=== PATIENT | female | born 1965 | race Caucasian/White ===

== ENCOUNTER 2019-06-24 16:14 | Inpatient (IN) | payer OTHER, SELFPAY ==
[2019-06-24] VITALS (10 sets, daily range): BP systolic 127–140; BP diastolic 81–101; PULSE 106–130; RESP 13–24; TEMP 36.4–36.7; O2SAT 93–100; BMI 38.8
--- NOTE | ~2019-06-24 | XR_ITS ---
EXAMINATION: XR chest 2V EXAM DATE: 06/24/2019 17:11 INDICATION: Shortness of breath, dizziness, nausea, left arm heaviness, paresthesia. TECHNIQUE: Frontal and lateral projections of the chest obtained and reviewed. Comparison is made to prior examination from 05/29/2014. FINDINGS: There is cardiomegaly and pulmonary vascular congestion. Findings are more pronounced than on previous exam. Cardiac monitoring device. No confluent consolidation, pneumothorax or pleural eff usion suspected. There are no osseous abnormalities identified. IMPRESSION: Cardiomegaly, pulmonary vascular congestion. Reviewed, dictated and finalized at location A. LSIOR MACHINE FEEDER
--- NOTE | ~2019-06-24 | CT_ITS ---
EXAMINATION: CT brain wo con DATE: 06/24/2019 17:09 INDICATION: Frontal headache. Dizziness. Headaches and left arm. Nausea. TECHNIQUE: Computed tomography (CT) of the head was performed without intravenous contrast. The mA wa s adjusted according to patient size. Iterative reconstruction technique was employed. Exam dose: 68 1.00 mGy-cm total exam DLP. COMPARISON: 01/01/2019 CT brain FINDINGS: Prominent calcification of the dominant left vertebral artery and bilateral carotid siphon internal carotid artery calcifications. There is nonspecific diminished attenuation of the cerebral white matter, likely due to chronic small vessel ischemic changes. No intracranial mass lesion or hemorrhage or cerebrovascular accident is evident. No midline shift or mass effect. No subdural or epidural hematoma. There is prominent mucoperiosteal thickening of the right maxillary sinus. There is soft tissue thick ening in the posterolateral right sphenoid sinus. There is mild focal soft tissue thickening within t he right ethmoid air cells. The paranasal sinuses and mastoid air cells otherwise are normally develo ped and aerated. No skull fracture or bone destruction of the cranial vault is evident. There is a small approximately 3 mm calcific or bony density adjacent to the inner table of the left parietal occipital area which may represent a small enostosis or small calcified meningioma. IMPRESSION: Cerebral atherosclerosis and chronic small vessel ischemic changes of the cerebral white matter No acute intracranial finding Paranasal sinus findings 3 mm calcific or bony densities adjacent to the inner table in the left parietal-occipital area, like ly a small in ostosis or small calcified meningioma Reviewed, dictated and finalized at Location [facility]. Reviewed, dictated and finalized at location A. RANCE MANAGER INSURANCE IMPRESSION: Cerebral atherosclerosis and chronic small vessel ischemic changes of the cerebral white matter No acute intracranial finding Paranasal sinus findings 3 mm calcific or bony densities adjacent to the inner table in the left parieta l-occipital area, likely a small in ostosis or small calcified meningioma
--- NOTE | 2019-06-24 16:20 | ECG_ITS ---
Measurements Intervals [place] Rate: 126 P: IN: 0 QRS: 28 QRSD: 128 T: 153 QT: 349 QTc: 507 Interpretive Statements ATRIAL FLUTTER/TACHYCARDIA WITH RAPID VENTRICULAR RESPONSE INTRAVENTRICULAR CONDUCTION DELAY BORDERLINE R WAVE PROGRESSION, ANTERIOR LEADS INFERIOR INFARCT, AGE INDETERMINATE ST-T WAVE ABNORMALITY IN LATERAL LEADS- CONSIDER ISCHEMIA ABNORMAL ECG Electronically Signed On 06-25-2019 6:57:51 PROFILING MACHINE SET UP OPERATOR TOOL by Panfilo Pearce D.O.
--- NOTE | 2019-06-24 16:25 | ED.DIZZY ---
HPI - Dizziness General Chief Complaint: Dizziness Stated Complaint: Dizzy Time Seen by Provider: 06/24/19 16:20 Source: patient Mode of arrival: EMS Limitations: no limitations History of Present Illness HPI Narrative: Pt is a 54 y/o female who presents to the ED, via EMS, with c/o constant dizziness that started yesterday. She states that she feels like the room is spinning and her dizziness is aggravated when she closes her eyes. Pt states that she has had this happen to her 2 weeks ago and she was seen at [facility], [place]. She notes that she was anemic and she had to get 3 bags of blood transfused. Pt has a Hx of AFIB, CHF, and sleep apnea and she is on home O2 at night and CPAP. She states that her HR was not under control when she left [facility], [place] and she went from taking Amiodarone BID to taking it QAM. She was also taken off her blood thinner. Pt denies hematochezia, hemoptysis, melena, or epistaxis. She notes that she has been having AUGUSTIN's but she does not have one in the ED bed. She also notes that she has epistaxis a couple of weeks ago but it resolved on its own. Pt reports SOB when she woke up this morning, congestion, wheezing, and nausea, but she denies vomiting or cough. She has chronic orthopnea. Pt states that she is a 1PPD smoker but she only smoked 1/2 a pack today. Her design agent is Dr. Car and her urologist is Dr. Nath. elicited complaint: dizziness Pertinent past history: anemia Onset (ago): day(s) (yesterday) Description: room spinning Context: change in medication History of similar symptoms: Yes Exacerbating factors: keeping eyes closed Associated symptoms: nausea, shortness of breath and other (congestion, wheezing) Related Data Home Medications Medication Instructions Recorded Confirmed albuterol sulfate 2 puff INHALATION QID PRN 06/24/19 amiodarone 200 mg PO DAILY 06/24/19 aspirin 325 mg PO DAILY 06/24/19 carvedilol 6.25 mg PO BID 06/24/19 docusate sodium [Stool Softener] 100 mg PO DAILY 06/24/19 furosemide [Lasix] 40 mg PO DAILY 06/24/19 lisinopril 40 mg PO DAILY 06/24/19 montelukast 10 mg PO DAILY 06/24/19 potassium chloride [Klor-Con M10] 10 meq PO DAILY 06/24/19 ranolazine [Ranexa] 1,000 mg PO Q12H 06/24/19 06/24/19 Allergies Allergy/AdvReac Type Severity Reaction Status Date / Time acetaminophen [From Percocet] Allergy Unknown Unknown Verified 06/24/19 16:19 oxycodone [From Percocet] Allergy Unknown Unknown Verified 06/24/19 16:19 Review of Systems Review of Systems: All systems reviewed & are unremarkable except as noted in HPI and below ENT: Denies epistaxis Respiratory: Respiratory: Reports chest congestion, Denies cough, Denies hemoptysis, Reports dyspnea and Reports wheezing Gastrointestinal: Gastrointestinal: Denies melena, Denies hematochezia, Reports nausea and Denies vomiting Neurologic: Reports dizziness and Denies headache(s) [facility] Social History Social History (Updated 06/24/19 @ 17:00 by Jaida Carter) Smoking packs per day: 1 Smoking cigarettes per day: 20.0 Years smoked: 43 Smoking pack-years: 43.00 Smoking status: Current every day smoker Tobacco type: cigarettes Alcohol intake: never Substance use: current Substance use type: marijuana Gender identity (if verbalized by the patient): Female Spiritual care concerns: No Agree to blood products: Yes Exam Const: General: no acute distress and alert; No diaphoretic Orientation/consciousness: oriented x3 HENMT: Ears: TM's normal bilaterally Mouth: Yes moist mucous membranes Eyes: Conjunctivae: conjunctivae normal Pupils: PERRL EOM: EOM intact bilaterally and No nystagmus Chest: Chest palpation & inspection: normal inspection of the chest Resp: Effort & Inspection: normal respiratory effort Auscultation: clear to auscultation bilaterally and no wheezes Cardio: Rate: tachycardic Rhythm: abnormal rhythm irregularly irregular GI: Palpation (GI):
[2019-06-24] MEDS: MECLIZINE HCL 25 MG TABLET PO (16:42)
[2019-06-24] MEDS: ONDANSETRON INJ 4 MG/2 ML VIAL IV PUSH (16:43)
[2019-06-24 16:50] LABS: Basophils Percent Auto 0.5 % (0.2-1.2); Eosinophils Absolute Auto 0.1 K/mm3 (0-0.3); Eosinophils Percent Auto 1.5 % (0-4.4); Hematocrit 29.3 % (37.0-47.0); Hemoglobin 8.7 g/dL (12.0-15.0); Immature Granulocyte Absolute 0.03 K/mm3 (0.00-0.031); Immature Granulocyte Percent A 0.4 % (0-0.5); Lymphocytes Absolute Auto 1.51 K/mm3 (0.9-3.2); Lymphocytes Percent Auto 19.3 % (18.3-44.2); Mean Corpuscular HGB Conc 29.7 g/dl (32-36); Mean Corpuscular Hemoglobin 25.2 pg (26-34); Mean Corpuscular Volume 84.9 fl (80-100); Mean Platelet Volume 11.6 fl (7.4-10.4); Monocytes Absolute Auto 0.6 K/mm3 (0.1-0.6); Monocytes Percent Auto 7.7 % (2.6-8.5); Neutrophils Absolute Auto 5.5 K/mm3 (1.3-6.7); Neutrophils Percent Auto 70.6 % (45.5-73.1); Platelet Count Result 207 k/mm3 (150-375); Red Blood Count 3.45 M/mm3 (4.2-5.4); Red Cell Distribution Width 17.3 % (11.5-14.5); White Blood Count 7.8 K/mm3 (4.5-10.0)
[2019-06-24 16:56] LABS: Alveolar/Arterial O2 Gradient 29.4 mmHg; Base Excess ABG 2.9 mEq/l (+/-2.0); Carboxyhemoglobin 2.8 % THb (0-2.0); Fractional Inspired Oxygen 21 %; HCO3 ABG 27.2 mEq/l (22.0-26.0); Methemoglobin ABG 0.3 %THb (0-1.5); Oxygen Content ABG 12.5 %vol (16.0-22.0); Oxygen Saturation ABG 94.9 % (95.0-100.0); Oxyhemoglobin 90.3 % THb (90.0-100.0); PCO2 ABG 40.9 mmHg (35.0-45.0); PO2 ABG 71.4 mmHg (80.0-100.0); Reduced Hemoglobin 6.6 %THb (0-5.0); Total Hemoglobin 9.8 g/dL (12.0-18.0); pH ABG 7.441 (7.350-7.450)
[2019-06-24 16:58] LABS: Device ROOM AIR; Modified Allen's Test Pass; Site Drawn LEFT RADIAL
[2019-06-24 17:02] LABS: Alanine Aminotransferase 14 U/L (4-35); Albumin Level 3.7 g/dL (3.5-5.1); Alkaline Phosphatase 72 U/L (38-126); Aspartate Amino Transferase 15 U/L (14-36); Bilirubin,Total 0.4 mg/dL (0.2-1.3); Blood Urea Nitrogen 15 mg/dL (7-17); Calcium 8.5 mg/dL (8.4-10.2); Carbon Dioxide 30 mmol/L (22-30); Chloride 102 mmol/L (98-107); Estimated Glomerular Filt Rate > 60; Glucose 109 mg/dL (65-105); Lactic Acid Reflex 0.8 mmol/L (0.7-2.1); Sodium 140 mmol/L (137-145)
[2019-06-24 17:03] LABS: Prothrombin Time 13.3 Seconds (11.1-14.7)
[2019-06-24 17:04] LABS: Hypochromasia 2+ (NORMAL); Platelet Estimate Adequate (Adequate)
[2019-06-24 17:05] LABS: Anisocytosis 2+ (NORMAL)
[2019-06-24 17:14] LABS: NT Pro B Type Natriuretic Pept 3850 PG/ML (5-100); Troponin I < 0.012 ng/mL (0.000-0.034)
[2019-06-24] MEDS: POTASSIUM CHLORIDE 20 MEQ TABLET 40 MEQ PO (17:33)
[2019-06-24 17:45] LABS: Magnesium 1.7 mg/dL (1.6-2.3)
[2019-06-24] MEDS: FUROSEMIDE INJ 40 MG/4 ML VIAL IV PUSH (17:47)
[2019-06-24 18:27] LABS: Glucose Point of Care 127 (65-105)
[2019-06-24 18:38] LABS: Add Urine Microscopic? NO; Appearance Urine Clear (Clear); Bilirubin Urine Negative (Negative); Blood Urine Negative (Negative); Color Urine Yellow (Yellow); Glucose Urine UA Negative (Negative); Ketones Urine Negative (Negative); Leukocyte Esterase Ur Negative LEU/UL (Negative); Nitrate Urine Negative (Negative); Protein Urine Negative (Negative); Specific Grav Ur 1.011 (1.001-1.035); Urobilinogen Urine Negative mg/dL (<2.0)
--- NOTE | 2019-06-24 18:45 | ADMGEN ---
This patient, Dee Zamora, was admitted to IMU Room 231-01. Patient/family oriented to hospital policies and general routines including ID bracelet, bed and alarms, visiting hours, pain management, procedures, bathroom and other care routines, personal items, smoking policy, room service/diet, and visiting hours. Valuables list has been completed. Information on how to activate the Rapid Response Team has been discussed. Patient/Family are encouraged to report perceived risks to care and to ask questions if they do not understand what they are told or what they should do.
--- NOTE | 2019-06-24 19:19 | PM.IMHP ---
H&P: HPI History of Present Illness Chief complaint: chf dizziness Narrative: Dee Zamora is a 54 year old female who has a past medical history of COPD, CHF, and atrial fibrillation. The patient had been at [facility] approximately 2 weeks ago. The patient stated that her hemoglobin was less than 6 and she got 3 units of packed red blood cells at that hospital. The patient had been very short of breath and felt better when discharged from [facility] 2 weeks ago. The patient did sign a consent to get records from [facility]. The records are currently not here. She had been on Xarelto and Plavix and those 2 medications were discontinued due to her anemia. She had a recent colonoscopy prior to her hemoglobin of 6 and had no abnormal T is according to the patient. The patient does have nebulizer machine at home and has been using it without difficulty but still continues to complain of shortness of breath with exertion. The patient's potassium was found to be 3.0 and was supplemented with potassium. The patient was also given IV Lasix. Her chest x-ray was read as congestive changes. She is being admitted for exacerbation of congestive heart failure and COPD. She also has hypokalemia. Review of Systems Review of Systems: All systems reviewed & are unremarkable except as noted in HPI and below Constitutional: Constitutional: Reports as per HPI and Reports no additional constitutional complaints Eyes: Eyes: Reports as per HPI and Reports no additional eye complaints ENT: Reports system reviewed and no additional complaints, except as documented and Reports hearing normal Cardiovascular: Cardiovascular: Reports no additional cardiovascular complaints Respiratory: Respiratory: Reports as per HPI, Reports chest congestion, Reports dyspnea (With exertion) and Reports wheezing Gastrointestinal: Gastrointestinal: Reports as per HPI and Reports no additional gastrointestinal complaints Musculoskeletal: Musculoskeletal: Reports no additional musculoskeletal complaints Integumentary/Breasts: Skin/Breast: Reports system reviewed and no additional complaints, except as docu and Reports as per HPI Neurologic: Reports system reviewed and no additional complaints, except as documented, Reports as per HPI and Reports Normal hearing present Psychiatric: Psychiatric: Reports no additional psychiatric complaints and Reports as per HPI Endocrine: Endocrine: Reports no additional endocrine complaints Hematologic/Lymphatic: Hematologic/Lymphatic: Reports no additional hematologic/lymphatic complaints Allergic/Immunologic: Allergic/Immunologic: Reports no additional allergic/immunologic complaints PMFSH Past Medical History Medical History (Updated 06/24/19 @ 19:47 by Candy Perez NP) Afib (Chronic) Arthritis (Chronic) Asthma (Chronic) Bilateral cataracts (Chronic) CHF (congestive heart failure) (Chronic) COPD (chronic obstructive pulmonary disease) (Chronic) Emphysema of lung (Chronic) GERD (gastroesophageal reflux disease) (Acute) HTN (hypertension) (Chronic) Myocardial infarction (Chronic) STEPH on CPAP (Chronic) Sleep apnea (Chronic) Surgical History Surgical History (Updated 06/24/19 @ 19:32 by Candy Perez NP) H/O heart artery stent (Chronic) H/O: hysterectomy (Chronic) History of back surgery (Chronic) History of loop recorder (Chronic) Hx of cholecystectomy (Chronic) Hx of tonsillectomy (Chronic) Family History Family History Mother Lung cancer Sibling Lung cancer Social History Social History (Updated 06/24/19 @ 19:34 by Candy Perez NP) Social History: She does not have a power of compliance attorney. She does needs herself to be a full code. Smoking packs per day: 1 Smoking cigarettes per day: 20.0 Years smoked: 43 Smoking pack-years: 43.00 Smoking status: Current every day smoker Tobacco type: cigarettes Alcohol intake: never Substance
[2019-06-24 20:05] LABS: Glucose Point of Care 129 (65-105)
[2019-06-24] MEDS: ALBUTEROL SULFATE NEB 2.5 MG/0.5 ML INH INHALATION (20:51)
[2019-06-24] MEDS: RANOLAZINE 500 MG TAB.ER.12H 1000 MG PO (22:18)
[2019-06-24] MEDS: methylPREDNISolone SOD SUCC 125 MG VIAL 80 MG IV PUSH (23:56)
[2019-06-25] VITALS (29 sets, daily range): BP systolic 117–152; BP diastolic 72–105; PULSE 104–132; RESP 14–24; TEMP 36–36.7; O2SAT 93–98
[2019-06-25] MEDS: ALBUTEROL SULFATE NEB 2.5 MG/0.5 ML INH INHALATION ×4 (03:03→21:39)
[2019-06-25 05:25] LABS: Basophils Percent Auto 0.5 % (0.2-1.2); Eosinophils Percent Auto 0.3 % (0-4.4); Hemoglobin 9.1 g/dL (12.0-15.0); Immature Granulocyte Absolute 0.04 K/mm3 (0.00-0.031); Immature Granulocyte Percent A 0.6 % (0-0.5); Lymphocytes Absolute Auto 0.35 K/mm3 (0.9-3.2); Lymphocytes Percent Auto 5.3 % (18.3-44.2); Mean Corpuscular HGB Conc 29.4 g/dl (32-36); Mean Corpuscular Hemoglobin 25.3 pg (26-34); Mean Corpuscular Volume 86.4 fl (80-100); Mean Platelet Volume 11.8 fl (7.4-10.4); Monocytes Absolute Auto 0.1 K/mm3 (0.1-0.6); Monocytes Percent Auto 0.8 % (2.6-8.5); Neutrophils Absolute Auto 6.2 K/mm3 (1.3-6.7); Neutrophils Percent Auto 92.5 % (45.5-73.1); Platelet Count Result 219 k/mm3 (150-375); Red Blood Count 3.59 M/mm3 (4.2-5.4); Red Cell Distribution Width 17.2 % (11.5-14.5); White Blood Count 6.7 K/mm3 (4.5-10.0)
[2019-06-25] MEDS: methylPREDNISolone SOD SUCC 125 MG VIAL 80 MG IV PUSH (05:31)
[2019-06-25 05:37] LABS: Blood Urea Nitrogen 19 mg/dL (7-17); Calcium 8.7 mg/dL (8.4-10.2); Carbon Dioxide 30 mmol/L (22-30); Chloride 101 mmol/L (98-107); Estimated CRCL calculation 76 ml/min; Estimated Glomerular Filt Rate 57; Glucose 225 mg/dL (65-105); Potassium 3.8 mmol/L (3.4-5.0); Sodium 140 mmol/L (137-145)
[2019-06-25 06:52] LABS: Hypochromasia 2+ (NORMAL); Ovalocytes 2+ (NORMAL); Platelet Estimate Adequate (Adequate); Polychromasia 1+ (NORMAL); Stomatocytes 1+ (NORMAL); Tear Drop Cells 2+ (NORMAL)
--- NOTE | 2019-06-25 08:12 | PM.IMPN ---
Progress Note: A&P Assessment and Plan (1) CHF (congestive heart failure): Qualifiers: Heart failure type: unspecified Heart failure chronicity: acute on chronic Qualified Code(s): I50.9 - Heart failure, unspecified Code(s): I50.9 - Heart failure, unspecified Status: Chronic Assessment and Plan: Type unknown as patient is normally seen by Cardiology [place]. Records have been requested but not yet available. Patient already improving. Chest x-ray on admission with pulmonary vascular congestion. Current on room air. Electrolytes and kidney function stable. Continue IV Lasix. Continue home lisinopril. Restarting home Coreg. Possible transfer from IMU later today if heart rate is improved. (2) Atrial fibrillation, chronic: Code(s): I48.20 - Chronic atrial fibrillation, unspecified Status: Acute Assessment and Plan: Telemetry reviewed on 06/25/2019 with heart rate in 110s to 120s. Home amiodarone already continued. Normally on Coreg and will resume this morning. No longer on Xarelto due to recent problems with anemia and need for transfusion. Will continue to monitor. (3) HTN (hypertension): Qualifiers: Hypertension type: essential hypertension Qualified Code(s): I10 - Essential (primary) hypertension Code(s): I10 - Essential (primary) hypertension Status: Chronic Assessment and Plan: Blood pressure reviewed on 06/25/2019 and mildly elevated this morning. Home Coreg being restarted. Also on diuretic. Will continue to monitor and adjust treatment as needed. (4) Acute hypokalemia: Code(s): E87.6 - Hypokalemia Status: Chronic Assessment and Plan: Potassium 3.0 on admission with replacement given. Level up to 3.8 today. Will continue to monitor and replace as needed. (5) Hyperglycemia: Code(s): R73.9 - Hyperglycemia, unspecified Status: Acute Assessment and Plan: No known history of diabetes. Blood sugar is over 200 this morning but has been receiving IV steroids. Steroids being discontinued. Will continue to monitor glucose level today. Will check hemoglobin A1c. (6) COPD (chronic obstructive pulmonary disease): Qualifiers: COPD type: unspecified COPD Qualified Code(s): J44.9 - Chronic obstructive pulmonary disease, unspecified Code(s): J44.9 - Chronic obstructive pulmonary disease, unspecified Status: Chronic Assessment and Plan: Clinically does not have exacerbation of COPD at this time. On room air. Will discontinue IV steroids. (7) Chronic anemia: Code(s): D64.9 - Anemia, unspecified Status: Chronic Assessment and Plan: Recent transfusion within the past 2 weeks. Hemoglobin 9.1 today and stable. Will continue to monitor H&H. No signs of acute bleeding. (8) STEPH on CPAP: Code(s): G47.33 - Obstructive sleep apnea (adult) (pediatric); Z99.89 - Dependence on other enabling machines and devices Status: Chronic Assessment and Plan: Continue home CPAP. Currently on room air. (9) CAD (coronary artery disease): Qualifiers: Coronary Disease-Associated Artery/Lesion type: [place] artery [place] vs. transplanted heart: [place] heart Associated angina: without angina Qualified Code(s): I25.10 - Atherosclerotic heart disease of [place] coronary artery without angina pectoris Code(s): I25.10 - Atherosclerotic heart disease of [place] coronary artery without angina pectoris Status: Acute Assessment and Plan: No acute issue. Awaiting records from [facility]. Will continue home aspirin and Ranexa along with beta-lore. (10) DVT prophylaxis: Code(s): Z29.9 - Encounter for prophylactic measures, unspecified Status: Acute Assessment and Plan: SCDs. Time Spent With Patient Time with patient: 15 - 25 minutes Subjective Interval history: Date of Service: 06/25/2019. Admitted with CHF exacerb
[2019-06-25 08:15] LABS: Glucose Point of Care 213 (65-105)
[2019-06-25] MEDS: AMIODARONE HCL 200 MG TABLET PO (09:00)
[2019-06-25] MEDS: carvediloL 6.25 MG TABLET PO ×2 (09:01→20:34)
[2019-06-25] MEDS: RANOLAZINE 500 MG TAB.ER.12H 1000 MG PO ×2 (09:01→20:35)
[2019-06-25] MEDS: LISINOPRIL 20 MG TABLET 40 MG PO (09:02)
[2019-06-25] MEDS: ASPIRIN 325 MG TABLET PO (09:02)
[2019-06-25] MEDS: FUROSEMIDE INJ 40 MG/4 ML VIAL IV PUSH (09:03)
[2019-06-25] MEDS: DOCUSATE SODIUM 100 MG CAPSULE PO (09:04)
[2019-06-25] MEDS: MONTELUKAST SODIUM 10 MG TABLET PO (09:28)
[2019-06-25] MEDS: POTASSIUM CHLORIDE 10 MEQ TABLET.ER PO (09:28)
[2019-06-25 11:20] LABS: Hemoglobin A1C 5.7 % (<5.7)
[2019-06-25 12:04] LABS: Glucose Point of Care 141 (65-105)
[2019-06-25] MEDS: LIDOCAINE 5% PATCH 1 PATCH TRANSDERM (12:17)
[2019-06-25 17:02] LABS: Glucose Point of Care 270 (65-105)
[2019-06-25 20:07] LABS: Glucose Point of Care 187 (65-105)
[2019-06-25] MEDS: ACETAMINOPHEN 325 MG TABLET 650 MG PO (20:35)
[2019-06-26] VITALS (25 sets, daily range): BP systolic 108–153; BP diastolic 72–99; PULSE 94–129; RESP 12–20; TEMP 36.2–36.8; O2SAT 96–99
[2019-06-26] MEDS: ALBUTEROL SULFATE NEB 2.5 MG/0.5 ML INH INHALATION ×4 (02:12→21:09)
[2019-06-26 05:13] LABS: Blood Urea Nitrogen 27 mg/dL (7-17); Carbon Dioxide 30 mmol/L (22-30); Chloride 101 mmol/L (98-107); Estimated CRCL calculation 84 ml/min; Estimated Glomerular Filt Rate > 60; Glucose 173 mg/dL (65-105); Magnesium 1.7 mg/dL (1.6-2.3); Potassium 3.4 mmol/L (3.4-5.0); Sodium 139 mmol/L (137-145)
[2019-06-26] MEDS: ACETAMINOPHEN 325 MG TABLET 650 MG PO ×4 (05:52→20:31)
[2019-06-26 08:41] LABS: Glucose Point of Care 167 (65-105)
[2019-06-26] MEDS: LIDOCAINE 5% PATCH 1 PATCH TRANSDERM (09:03)
[2019-06-26] MEDS: carvediloL 6.25 MG TABLET PO ×2 (09:04→11:03)
[2019-06-26] MEDS: ASPIRIN 325 MG TABLET PO (09:05)
[2019-06-26] MEDS: AMIODARONE HCL 200 MG TABLET PO (09:05)
[2019-06-26] MEDS: DOCUSATE SODIUM 100 MG CAPSULE PO (09:05)
[2019-06-26] MEDS: RANOLAZINE 500 MG TAB.ER.12H 1000 MG PO ×2 (09:05→20:31)
[2019-06-26] MEDS: LISINOPRIL 20 MG TABLET 40 MG PO (09:05)
[2019-06-26] MEDS: MONTELUKAST SODIUM 10 MG TABLET PO (09:05)
[2019-06-26] MEDS: POTASSIUM CHLORIDE 20 MEQ TABLET PO (09:05)
[2019-06-26] MEDS: FUROSEMIDE INJ 40 MG/4 ML VIAL IV PUSH (09:06)
--- NOTE | 2019-06-26 10:23 | PM.IMPN ---
Progress Note: A&P Assessment and Plan (1) CHF (congestive heart failure): Qualifiers: Heart failure chronicity: acute on chronic Heart failure type: unspecified Qualified Code(s): I50.9 - Heart failure, unspecified Code(s): I50.9 - Heart failure, unspecified Status: Chronic Assessment and Plan: Type unknown as patient is normally seen by Cardiology [place]. Records requested but not revealing as to type of congestive heart failure with no echocardiogram occluded. Patient is improving with IV Lasix and will continue. Remains on room air. Electrolytes and kidney function remained stable. Will continue lisinopril and Coreg. Will transfer to medical floor with telemetry this afternoon as heart rate is now better controlled with increase and Coreg. (2) Atrial fibrillation, chronic: Code(s): I48.20 - Chronic atrial fibrillation, unspecified Status: Acute Assessment and Plan: Telemetry reviewed on 06/26/2019 this morning with heart rate still increasing to the 120s. Coreg dose increased. Telemetry reviewed this afternoon with heart rate now 90s to low 100s. Will continue home amiodarone. No longer on Xarelto due to recent problems with anemia and need for transfusion. Will transfer to medical floor with telemetry. Possible discharge tomorrow if stable. (3) HTN (hypertension): Qualifiers: Hypertension type: essential hypertension Qualified Code(s): I10 - Essential (primary) hypertension Code(s): I10 - Essential (primary) hypertension Status: Chronic Assessment and Plan: Blood pressure reviewed on 06/26/2019 and stable in acceptable range. Continue to monitor on higher dose of Coreg along with lisinopril and diuretic. Will adjust treatment as needed. (4) Acute hypokalemia: Code(s): E87.6 - Hypokalemia Status: Chronic Assessment and Plan: Potassium 3.4 today. Will give an additional dose of potassium. Keep scheduled oral replacement. Will continue to monitor and adjust replacement as needed. (5) Hyperglycemia: Code(s): R73.9 - Hyperglycemia, unspecified Status: Acute Assessment and Plan: No known history of diabetes. Blood sugar reviewed on 06/26/2019 with improvement but still slightly higher than would like. 5.7. No longer on steroids. Will monitor. (6) COPD (chronic obstructive pulmonary disease): Qualifiers: COPD type: unspecified COPD Qualified Code(s): J44.9 - Chronic obstructive pulmonary disease, unspecified Code(s): J44.9 - Chronic obstructive pulmonary disease, unspecified Status: Chronic Assessment and Plan: Clinically does not have exacerbation of COPD at this time. Remains on room air. Will monitor. (7) Chronic anemia: Code(s): D64.9 - Anemia, unspecified Status: Chronic Assessment and Plan: Recent transfusion within the past 2 weeks. Hemoglobin 9.1 on 06/25/19 and stable. Will continue to monitor H&H. No signs of acute bleeding. (8) STEPH on CPAP: Code(s): G47.33 - Obstructive sleep apnea (adult) (pediatric); Z99.89 - Dependence on other enabling machines and devices Status: Chronic Assessment and Plan: Continue home CPAP. Currently on room air. (9) CAD (coronary artery disease): Qualifiers: Associated angina: without angina Coronary Disease-Associated Artery/Lesion type: [place] artery [place] vs. transplanted heart: [place] heart Qualified Code(s): I25.10 - Atherosclerotic heart disease of [place] coronary artery without angina pectoris Code(s): I25.10 - Atherosclerotic heart disease of [place] coronary artery without angina pectoris Status: Acute Assessment and Plan: Stable. No acute issue. Will continue home aspirin and Ranexa along with beta-lore. Will monitor. (10) DVT prophylaxis: Code(s): Z29.9 - Encounter for prophylactic measures, unspecified Status: Acut
[2019-06-26] MEDS: IPRATROPIUM BR 0.02% INH SOLN 0.5 MG/2.5 ML VIAL INHALATION (10:46)
[2019-06-26 12:05] LABS: Glucose Point of Care 129 (65-105)
[2019-06-26] MEDS: POTASSIUM CHLORIDE 20 MEQ PACKET (FOR LIQUID) PO (17:51)
[2019-06-26 18:21] LABS: Glucose Point of Care 106 (65-105)
[2019-06-26] MEDS: carvediloL 12.5 MG TABLET PO (20:31)
[2019-06-26 20:50] LABS: Glucose Point of Care 161 (65-105)
[2019-06-27] VITALS (21 sets, daily range): BP systolic 126–150; BP diastolic 75–95; PULSE 83–129; RESP 13–20; TEMP 36.2–36.9; O2SAT 94–100
[2019-06-27] MEDS: ALBUTEROL SULFATE NEB 2.5 MG/0.5 ML INH INHALATION ×3 (03:34→15:00)
[2019-06-27 05:24] LABS: Blood Urea Nitrogen 27 mg/dL (7-17); Calcium 8.8 mg/dL (8.4-10.2); Carbon Dioxide 34 mmol/L (22-30); Chloride 99 mmol/L (98-107); Estimated CRCL calculation 86 ml/min; Estimated Glomerular Filt Rate > 60; Glucose 93 mg/dL (65-105); Magnesium 1.8 mg/dL (1.6-2.3); Potassium 3.7 mmol/L (3.4-5.0); Sodium 139 mmol/L (137-145)
[2019-06-27 07:25] LABS: Hematocrit 29.5 % (37.0-47.0); Hemoglobin 8.6 g/dL (12.0-15.0); Mean Corpuscular HGB Conc 29.2 g/dl (32-36); Mean Corpuscular Hemoglobin 24.8 pg (26-34); Platelet Count Result 212 k/mm3 (150-375); Red Blood Count 3.47 M/mm3 (4.2-5.4); Red Cell Distribution Width 18.1 % (11.5-14.5); White Blood Count 7.6 K/mm3 (4.5-10.0)
[2019-06-27] MEDS: ASPIRIN 325 MG TABLET PO (09:38)
[2019-06-27] MEDS: RANOLAZINE 500 MG TAB.ER.12H 1000 MG PO (09:38)
[2019-06-27] MEDS: LIDOCAINE 5% PATCH 1 PATCH TRANSDERM (09:38)
[2019-06-27] MEDS: DOCUSATE SODIUM 100 MG CAPSULE PO (09:39)
[2019-06-27] MEDS: LISINOPRIL 20 MG TABLET 40 MG PO (09:39)
[2019-06-27] MEDS: POTASSIUM CHLORIDE 20 MEQ TABLET PO (09:39)
[2019-06-27] MEDS: AMIODARONE HCL 200 MG TABLET PO (09:39)
[2019-06-27] MEDS: FUROSEMIDE INJ 40 MG/4 ML VIAL IV PUSH (09:39)
[2019-06-27] MEDS: carvediloL 12.5 MG TABLET PO ×2 (09:40→13:48)
[2019-06-27] MEDS: ACETAMINOPHEN 325 MG TABLET 650 MG PO (09:42)
[2019-06-27 09:43] LABS: Glucose Point of Care 90 (65-105)
[2019-06-27 12:22] LABS: Glucose Point of Care 94 (65-105)
--- NOTE | 2019-06-27 13:52 | PM.IMPN ---
Progress Note: A&P Assessment and Plan (1) CHF (congestive heart failure): Qualifiers: Heart failure type: unspecified Heart failure chronicity: acute on chronic Qualified Code(s): I50.9 - Heart failure, unspecified Code(s): I50.9 - Heart failure, unspecified Status: Chronic Assessment and Plan: Type unknown as patient is normally seen by Cardiology [place]. Records requested but not revealing as to type of congestive heart failure with no echocardiogram occluded. Improved with diuresis. Will transition to oral Lasix and discharged home today. Remains on Coreg and lisinopril. Does have follow-up appointment with her automotive center manager on 07/05/2019. (2) Atrial fibrillation, chronic: Code(s): I48.20 - Chronic atrial fibrillation, unspecified Status: Acute Assessment and Plan: Telemetry reviewed on 06/27/2019 with heart rate improved. Occasionally will increase with activity only. Will increase Coreg back to her usual home dose of 25 mg b.i.d.. Continue home amiodarone. No longer on Xarelto due to recent problems with anemia and need for transfusion. Follow up with Cardiology as scheduled. . (3) HTN (hypertension): Qualifiers: Hypertension type: essential hypertension Qualified Code(s): I10 - Essential (primary) hypertension Code(s): I10 - Essential (primary) hypertension Status: Chronic Assessment and Plan: Blood pressure reviewed on 06/27/2019 and stable. Will increase Coreg to prior home dose. Continue lisinopril and diuretic. Follow as outpatient. (4) Acute hypokalemia: Code(s): E87.6 - Hypokalemia Status: Chronic Assessment and Plan: Potassium normal at 3.7 today. Continue scheduled potassium. Follow as outpatient. (5) Hyperglycemia: Code(s): R73.9 - Hyperglycemia, unspecified Status: Acute Assessment and Plan: No known history of diabetes. Blood sugar reviewed on 06/27/2019 and within normal range. Hemoglobin A1c 5.7. No longer on steroids. (6) COPD (chronic obstructive pulmonary disease): Qualifiers: COPD type: unspecified COPD Qualified Code(s): J44.9 - Chronic obstructive pulmonary disease, unspecified Code(s): J44.9 - Chronic obstructive pulmonary disease, unspecified Status: Chronic Assessment and Plan: Clinically does not have exacerbation of COPD at this time. Remains stable on room air. (7) Chronic anemia: Code(s): D64.9 - Anemia, unspecified Status: Chronic Assessment and Plan: Recent transfusion within the past 2 weeks. Hemoglobin stable at 8.6 today. No signs of active bleeding. Follow-up as outpatient. (8) STEPH on CPAP: Code(s): G47.33 - Obstructive sleep apnea (adult) (pediatric); Z99.89 - Dependence on other enabling machines and devices Status: Chronic Assessment and Plan: Continue home CPAP with which she is compliant. Currently on room air. (9) CAD (coronary artery disease): Qualifiers: Coronary Disease-Associated Artery/Lesion type: [place] artery [place] vs. transplanted heart: [place] heart Associated angina: without angina Qualified Code(s): I25.10 - Atherosclerotic heart disease of [place] coronary artery without angina pectoris Code(s): I25.10 - Atherosclerotic heart disease of [place] coronary artery without angina pectoris Status: Acute Assessment and Plan: Stable. No acute issue. Will continue home aspirin and Ranexa along with beta-lore. (10) DVT prophylaxis: Code(s): Z29.9 - Encounter for prophylactic measures, unspecified Status: Acute Assessment and Plan: SCDs. Time Spent With Patient Time with patient: 15 - 25 minutes Subjective Interval history: Date of Service: 06/27/2019. Admitted with CHF exacerbation. Recently hospitalized at [facility] 2 weeks ago due to anemia. Sleeping but easily awakened. Does sti
--- NOTE | 2019-06-27 13:59 | PM.DS ---
DS: Diagnosis Admitting Diagnosis Admitting Diagnosis: Heart failure, unspecified Discharge Diagnosis (1) CHF (congestive heart failure): Qualifiers: Heart failure chronicity: acute on chronic Heart failure type: unspecified Qualified Code(s): I50.9 - Heart failure, unspecified Code(s): I50.9 - Heart failure, unspecified Status: Chronic (2) Atrial fibrillation, chronic: Code(s): I48.20 - Chronic atrial fibrillation, unspecified Status: Acute (3) HTN (hypertension): Qualifiers: Hypertension type: essential hypertension Qualified Code(s): I10 - Essential (primary) hypertension Code(s): I10 - Essential (primary) hypertension Status: Chronic (4) Acute hypokalemia: Code(s): E87.6 - Hypokalemia Status: Chronic (5) Hyperglycemia: Code(s): R73.9 - Hyperglycemia, unspecified Status: Acute (6) COPD (chronic obstructive pulmonary disease): Qualifiers: COPD type: unspecified COPD Qualified Code(s): J44.9 - Chronic obstructive pulmonary disease, unspecified Code(s): J44.9 - Chronic obstructive pulmonary disease, unspecified Status: Chronic (7) Chronic anemia: Code(s): D64.9 - Anemia, unspecified Status: Chronic (8) STEPH on CPAP: Code(s): G47.33 - Obstructive sleep apnea (adult) (pediatric); Z99.89 - Dependence on other enabling machines and devices Status: Chronic (9) CAD (coronary artery disease): Qualifiers: Associated angina: without angina Coronary Disease-Associated Artery/Lesion type: [place] artery [place] vs. transplanted heart: [place] heart Qualified Code(s): I25.10 - Atherosclerotic heart disease of [place] coronary artery without angina pectoris Code(s): I25.10 - Atherosclerotic heart disease of [place] coronary artery without angina pectoris Status: Acute DS: Summary Hospital Course Reason for hospitalization: Shortness of breath with exertion. Hospital Course: Date of Service of Discharge: June 27, 2019. History of Present Illness: Patient is a 54-year-old with known history of COPD, CHF and atrial fibrillation recently hospitalized a [facility] 2 weeks ago at which time she was treated for anemia. During that stay she did receive 3 units of packed red blood cells. Patient reports being very short of breath prior to admission there but was feeling better at discharge. Unfortunately, patient is now reporting shortness of breath with exertion. No fever, chills or cough. No chest pain or chest pressure. No abdominal pain. She does have chronic pain issues. In the emergency room, findings were consistent with exacerbation of congestive heart failure and hypokalemia. As result, she was admitted for further evaluation and treatment. Course in Hospital: On admission, patient was placed in intermediate care unit. She was started on IV Lasix in place of her home Lasix. She was otherwise continued on home medication including Coreg and lisinopril. Patient did not require oxygen. She was using her home CPAP settings for nighttime use with known obstructive sleep apnea. Patient rapidly improved. S of breath with substantially improved. She had no chest pain or chest pressure. However, patient was noted to have some persistence of tachycardia with her chronic atrial fibrillation. Coreg dose was advanced while in the hospital with better control. Patient would still occasionally have elevated heart rate but was asymptomatic and was quickly returned to normal. She was able to be transferred to the medical floor with telemetry greater than 24 hours prior to discharge. No echocardiogram was done with recent evaluation at [facility]. She did require replacement of potassium but was at normal level by discharge. Patient was noted to have hyperglycemia on admission but this corrected. Blood sugar remained stable after that point. Blood pressure did r
== END 2019-06-27 15:27 | disposition home or self-care (01) | DRG 194 ==
LOC: ANHED 17:21 → ANHIMU 18:32
PROVIDERS: Admitting Provider Hospitalist; Emergency Provider General Practice; Visit Provider Hospitalist
DX: I11.0 Hypertensive heart disease with heart failure (principal); I50.9 Heart failure, unspecified; I48.20 Chronic atrial fibrillation, unspecified; E87.6 Hypokalemia; J44.9 Chronic obstructive pulmonary disease, unspecified; D64.9 Anemia, unspecified; G47.33 Obstructive sleep apnea (adult) (pediatric); I25.10 Atherosclerotic heart disease of native coronary artery without angina pectoris; F17.210 Nicotine dependence, cigarettes, uncomplicated; R42 Dizziness and giddiness
CPT/HCPCS: 36415; 36600; 70450; 71046; 80048; 80053; 81003; 82375; 82805; 82947; 83036; 83050; 83605; 83735; 83880; 84484; 85025; 85027; 85610; 93005; 94640; 96374; 99285; A9270; J1940; J2405; J2930

== ENCOUNTER 2020-02-01 07:23 | Outpatient (CLI) | payer OTHER, SELFPAY ==
--- NOTE | ~2020-02-01 | PE_ITS ---
EXAMINATION: PET skull to mid thigh DATE: 02/01/2020 09:46 INDICATION: Multiple pulmonary nodules. TECHNIQUE: Blood glucose level was 101 mg/dL. 9.767 mCi of 18-fluorodeoxyglucose (18-FDG) was adminis tered i.v. Low dose computed tomography (CT) images were acquired from the base of the brain to the p roximal thighs for attenuation correction and anatomic localization. Positron emission tomography (PE T) images were acquired in the same distribution beginning 73 minutes after injection. Images includi ng fused PET/CT images were reconstructed in axial, coronal, and sagittal planes. Automated exposure control technique was employed. The dose-length product was 1373.52mGy-cm. COMPARISON: CT abdomen and pelvis dated 09/11/2017 and 10/23/2015 FINDINGS: Head/neck: There is increased activity in the oral cavity, palatine tonsils, laryngeal muscles and ocular muscl es without CT correlate, likely physiologic. No pathologically enlarged cervical lymphadenopathy or s uspicious foci of increased FDG uptake in the visualized head or neck. Chest: Implantable vehicle painter in the superomedial left breast. Mild emphysema with incidentally noted a zygos lobe. 12 mm spiculated nodule in the posterior segment of the right upper lobe with negligible FDG uptake with maximal SUV of 1.7 no other suspicious pulmonary nodules, pneumonia or other pulmonar y infiltrates. No pulmonary edema or pleural effusion. Cardiomegaly. Atherosclerotic coronary artery calcification. No pericardial effusion. Ectatic ascending thoracic aorta measuring up to 4.0 cm. No p athologically enlarged or FDG avid thoracic lymphadenopathy. Abdomen/pelvis/proximal thighs: Physiologic renal accumulation and excretion of FDG activity in the kidneys, bladder and along portio ns of ureters. Bilateral renal cysts the largest on the right measuring up to 7.7 cm. Normal degree a nd heterogenous pattern of increased uptake throughout the liver without radiologic correlate or taniya nant FDG avid lesion. Cholecystectomy clips the gallbladder fossa. Stable appearance of the lobular c ontour to the anterior dome of the spleen which demonstrates evident low attenuation and FDG uptake i s remainder of the spleen. Pancreas and right adrenal gland are normal. No interval change in a 1.7 c m low-attenuation left adrenal adenoma which is without associated FDG uptake There are few diverticu la along the sigmoid colon without adjacent inflammatory change to suggest diverticulitis. Mild uptak e scattered throughout the bowels without radiologic correlate, also likely physiologic. No other abn ormal foci of increased FDG uptake or pathologically enlarged lymphadenopathy in the abdomen, pelvis or proximal thighs. There is calcified atherosclerosis of the aorta and many of the other arteries. F usiform ectasia of the infrarenal aorta which measures up to 3.2 cm in maximal diameter. Musculoskeletal: Mild lumbar dextroscoliosis with severe spondylosis. Postoperative change of attempted anterior spina l fusion at L5-S1 with bone graft cages at the disc space. Postoperative change of prior L3 and L4 ri ght hemilaminectomies. No suspicious lytic, blastic or FDG avid bone lesions. IMPRESSION: 1. Negligible FDG activity associated with a 12 mm thick liquid nodule in the posterior segment of th e right upper lobe. Differential would remain infectious/inflammatory nodule versus low-grade neoplas m such as bronchoalveolar carcinoma. Recommend correlation with any prior outside imaging. If there h as been interval growth would consider percutaneous CT-guided biopsy which may be challenging with in creased risk of pneumothorax given the position of the lesion along side the fissure. The lesion has remained unchanged with decrease in size would consider continued CT follow-up. 2. Mild emphysema. 3. Cardiomegaly. 4. Mild ectasia of the ascending thoracic aorta measuring up to 4.0 cm and
[2020-02-01 07:55] LABS: Glucose Point of Care 101 (65-105)
== END 2020-02-01 07:24 | disposition home or self-care (01) ==
LOC: ANHIMG 07:29
PROVIDERS: Visit Provider Nurse Practitioner
DX: R91.8 Other nonspecific abnormal finding of lung field (principal); J43.9 Emphysema, unspecified; I51.7 Cardiomegaly; I77.810 Thoracic aortic ectasia
CPT/HCPCS: 78815; A9552

== ENCOUNTER 2020-02-09 22:46 | Emergency (ER) | payer OTHER, SELFPAY ==
--- NOTE | ~2020-02-09 | XR_ITS ---
EXAMINATION: XR chest 2V 02/09/2020 23:28 INDICATION: Upper back pain. Arm numbness. PROCEDURE: PA and lateral views of the chest COMPARISON: 05/06/2007 FINDINGS: The lungs are clear. The cardiomediastinal silhouette is within normal limits. There are no pleural effusions. There is no pneumothorax suspected. IMPRESSION: 1: NO ACUTE CARDIOPULMONARY DISEASE. Reviewed, dictated and finalized at location A.
--- NOTE | 2020-02-09 23:02 | ECG_ITS ---
Measurements Intervals [place] Rate: 62 P: 64 MS: 203 QRS: 43 QRSD: 106 T: 122 QT: 422 QTc: 430 Interpretive Statements SINUS RHYTHM VENTRICULAR PREMATURE COMPLEX BORDERLINE AV CONDUCTION DELAY INFERIOR INFARCT, AGE INDETERMINATE BORDERLINE ST-T WAVE ABNORMALITY- LATERAL LEADS ABNORMAL ECG Electronically Signed On 02-10-2020 7:24:08 CDT by Panfilo Pearce D.O.
--- NOTE | 2020-02-09 23:02 | ED.GENADULT ---
HPI - General Adult General Chief complaint: Unspecified Stated complaint: Arm numbness and back pain Time Seen by Provider: 02/09/20 22:49 Source: RN notes reviewed History of Present Illness HPI narrative: Patient presents emergency department from home for back pain. Patient states that on 02/01/2020 she had a PET scan done of her chest for very nodules. States she had to raise her hands up above her head at that time for approximately 30 minutes and since that time she has been having back pain in between her lower shoulder blades up into the base of her neck. She states that with this she is had tingling in her bilateral arms. She denies having any fevers or chills chest pain weakness of the extremities bowel or bladder incontinence and denies any numbness or tingling in the legs. She states she took no pain medication today. States the pain became worse this evening so she came in for further evaluation Related Data Home Medications Medication Instructions Recorded Confirmed albuterol sulfate 2 puff INHALATION QID PRN 06/24/19 06/24/19 amiodarone 200 mg PO DAILY 06/24/19 06/24/19 aspirin 325 mg PO DAILY 06/24/19 06/24/19 docusate sodium [Stool Softener] 100 mg PO DAILY 06/24/19 06/24/19 furosemide [Lasix] 40 mg PO DAILY 06/24/19 06/24/19 lisinopril 40 mg PO DAILY 06/24/19 06/24/19 montelukast 10 mg PO DAILY 06/24/19 06/24/19 ranolazine [Ranexa] 1,000 mg PO Q12H 06/24/19 06/24/19 Allergies Allergy/AdvReac Type Severity Reaction Status Date / Time oxycodone [From Percocet] Allergy Unknown Unknown Verified 11/04/19 15:16 Review of Systems Review of Systems: Narrative: Gen.: Denies fevers or chills Eyes: Denies eye pain or visual change ENT: Denies congestion Respiratory: Denies shortness of breath or cough CV: Denies chest pain or palpitations GI: Denies abdominal pain nausea, emesis or diarrhea denies incontinence Musculoskeletal: See HPI Neuro: Denies weakness, reports tingling in the bilateral upper arms Skin: Denies rash Except as documented, all other systems reviewed and negative PMFSH Past Medical History Medical History Afib Arthritis Asthma Bilateral cataracts CHF (congestive heart failure) COPD (chronic obstructive pulmonary disease) Emphysema of lung GERD (gastroesophageal reflux disease) HTN (hypertension) Myocardial infarction STEPH on CPAP Sleep apnea Social History Social History Social History: She does not have a power of associate attorney. She does needs herself to be a full code. Smoking packs per day: 1 Smoking cigarettes per day: 20.0 Years smoked: 43 Smoking pack-years: 43.00 Smoking status: Current every day smoker Tobacco type: cigarettes Alcohol intake: never Substance use: current Substance use type: marijuana Other substance usage details: Occasion Additional living arrangements comments: Lives with son and a friend Additional occupation/education comments: Disabled Gender identity (if verbalized by the patient): Female Spiritual care concerns: No Agree to blood products: Yes Exam Narrative: Exam Narrative: APPEARANCE: No acute distress, nontoxic, resting in bed HEENT: Normocephalic, atraumatic, OMM, TMs clear bilaterally EYES: PERRL, EOMI NECK: Supple, nontender, full range of motion without pain, no meningismus RESPIRATORY: No respiratory distress, clear to auscultation bilaterally with no rhonchi wheezing or rales CARDIOVASCULAR: RRR s murmur ABDOMINAL: Soft, nontender, nondistended MUSCULOSKELETAL: Moves all extremities. No clubbing, cyanosis or edema. Back: No midline thoracic lumbar tenderness palpation, tender palpation over the bilateral trapezius muscles as well as bilateral paravertebral muscles T2-6 NEURO: A and O ?3, following commands, speech normal, no facial droop,muscle strength 5 out of 5 bilateral upper and lower ext
[2020-02-09] MEDS: KETOROLAC 30 MG/ML VIAL (*BKC) IV PUSH (23:13)
[2020-02-09 23:25] VITALS: BP 104/68; PULSE 65; RESP 16; TEMP 36.6; O2SAT 97
[2020-02-09 23:32] LABS: Basophils Absolute Auto 0.1 K/mm3 (0.0-0.1); Basophils Percent Auto 0.6 % (0.2-1.2); Eosinophils Absolute Auto 0.4 K/mm3 (0-0.3); Eosinophils Percent Auto 3.5 % (0-4.4); Hematocrit 39.1 % (37.0-47.0); Immature Granulocyte Absolute 0.03 K/mm3 (0.00-0.031); Immature Granulocyte Percent A 0.3 % (0-0.5); Lymphocytes Absolute Auto 2.42 K/mm3 (0.9-3.2); Lymphocytes Percent Auto 22.4 % (18.3-44.2); Mean Corpuscular HGB Conc 33.2 g/dl (32-36); Mean Corpuscular Hemoglobin 32.1 pg (26-34); Mean Corpuscular Volume 96.5 fl (80-100); Mean Platelet Volume 12.1 fl (7.4-10.4); Monocytes Absolute Auto 0.9 K/mm3 (0.1-0.6); Monocytes Percent Auto 8.1 % (2.6-8.5); Neutrophils Percent Auto 65.1 % (45.5-73.1); Platelet Count Result 168 k/mm3 (150-375); Red Blood Count 4.05 M/mm3 (4.2-5.4); Red Cell Distribution Width 12.7 % (11.5-14.5); White Blood Count 10.8 K/mm3 (4.5-10.0)
[2020-02-09 23:36] LABS: Blood Urea Nitrogen 28 mg/dL (7-17); Calcium 9.1 mg/dL (8.4-10.2); Carbon Dioxide 28 mmol/L (22-30); Chloride 104 mmol/L (98-107); Estimated Glomerular Filt Rate 39; Glucose 121 mg/dL (65-105); Potassium 4.2 mmol/L (3.4-5.0); Sodium 138 mmol/L (137-145)
[2020-02-09 23:42] LABS: INR 1.1; Prothrombin Time 13.4 Seconds (11.1-14.7)
[2020-02-09 23:43] LABS: Partial Thromboplastin Time 28.1 SECONDS (22.3-36.8)
[2020-02-09 23:48] LABS: Troponin I < 0.012 ng/mL (0.000-0.034)
[2020-02-10 01:31] VITALS: BP 106/71; PULSE 62; RESP 16; TEMP 36.5; O2SAT 97
== END 2020-02-10 01:32 | disposition home or self-care (01) ==
PROVIDERS: Emergency Provider Emergency Medicine
DX: M54.6 Pain in thoracic spine (principal); M62.830 Muscle spasm of back; I48.91 Unspecified atrial fibrillation; M19.90 Unspecified osteoarthritis, unspecified site; I50.9 Heart failure, unspecified; I11.0 Hypertensive heart disease with heart failure; K21.9 Gastro-esophageal reflux disease without esophagitis; J43.9 Emphysema, unspecified; I49.3 Ventricular premature depolarization; R94.31 Abnormal electrocardiogram [ECG] [EKG]; I25.2 Old myocardial infarction; G47.33 Obstructive sleep apnea (adult) (pediatric); F17.200 Nicotine dependence, unspecified, uncomplicated
CPT/HCPCS: 36415; 71046; 80048; 84484; 85025; 85610; 85730; 93005; 96374; 96375; 99284; J1885; J3360

== ENCOUNTER 2020-05-24 10:01 | Outpatient (CLI) | payer OTHER, SELFPAY ==
--- NOTE | 2020-05-24 11:00 | NEURO_ITS ---
Patient Number: [id number] Impression: # Complains of paresthesia of upper extremities. # Right severe Carpal Tunnel Syndrome. # Bilateral ulnar neuropathy across the elbow. # Normal needle/EMG exam Nerve Conduction Studies Anti Sensory Summary Table Stim Site NR Peak (ms) P-T Amp (?V) Site1 Site2 Delta-P (ms) Dist (cm) Leonard (m/s) Left Median Anti Sensory (2-3nd Digit) Wrist 3.4 33.4 Wrist 2-3nd Digit 3.4 14.0 41 Wrist 3.5 17.6 Wrist 2-3nd Digit 3.4 14.0 41 Right Median Anti Sensory (2-3nd Digit) Wrist 5.6 30.8 Wrist 2-3nd Digit 5.6 14.0 25 Wrist 7.1 4.9 Wrist 2-3nd Digit 5.6 14.0 25 Left Radial Anti Sensory (Base 1st Digit) Wrist 2.4 8.9 Wrist Base 1st Digit 2.4 0.0 Right Radial Anti Sensory (Base 1st Digit) Wrist 2.7 10.1 Wrist Base 1st Digit 2.7 0.0 Left Ulnar Anti Sensory (5th Digit) Wrist 3.1 11.2 Wrist 5th Digit 3.1 14.0 45 Right Ulnar Anti Sensory (5th Digit) Wrist 2.5 13.4 Wrist 5th Digit 2.5 14.0 56 Motor Summary Table Stim Site NR Onset (ms) O-P Amp (mV) Site1 Site2 Delta-0 (ms) Dist (cm) Leonard (m/s) Left Median Motor (Abd Poll Brev) Wrist 3.9 4.0 Elbow Wrist 4.6 27.0 59 Elbow 8.5 3.6 Right Median Motor (Abd Poll Brev) Wrist 6.7 3.7 Elbow Wrist 4.9 27.0 55 Elbow 11.6 3.6 Left Ulnar Motor (Abd Dig Minimi) Wrist 3.3 3.4 A Elbow Wrist 6.7 27.0 40 A Elbow 10.0 3.0 B Elbow Wrist 4.5 24.0 53 B Elbow 7.8 3.1 Right Ulnar Motor (Abd Dig Minimi) Wrist 3.1 3.5 A Elbow Wrist 5.5 26.0 47 A Elbow 8.6 2.9 B Elbow Wrist 3.4 20.0 59 B Elbow 6.5 1.4 F Wave Studies NR F-Lat (ms) L-R F-Lat (ms) Left Median (Mrkrs) (Abd Poll Brev) 29.94 3.39 Right Median (Mrkrs) (Abd Poll Brev) 33.33 3.39 Left Ulnar (Mrkrs) (Abd Dig Min) 30.77 1.15 Right Ulnar (Mrkrs) (Abd Dig Min) 31.91 1.15 EMG Side Muscle Nerve Root Ins Act Fibs Amp Dur Recrt Comment Right 1stDorInt Ulnar C8-T1 Nml Nml Nml Nml Nml Right Ext Indicis Radial (Post Int) C7-8 Nml Nml Nml Nml Nml Right Ext Digitorum Radial (Post Int) C7-8 Nml Nml Nml Nml Nml Right BrachioRad Radial C5-6 Nml Nml Nml Nml Nml Right PronatorTeres Median C6-7 Nml Nml Nml Nml Nml Right Abd Poll Brev Median C8-T1 Nml Nml Nml Nml Nml Left 1stDorInt Ulnar C8-T1 Nml Nml Nml Nml Nml Left Ext Indicis Radial (Post Int) C7-8 Nml Nml Nml Nml Nml Left Ext Digitorum Radial (Post Int) C7-8 Nml Nml Nml Nml Nml Left BrachioRad Radial C5-6 Nml Nml Nml Nml Nml Left PronatorTeres Median C6-7 Nml Nml Nml Nml Nml Left Abd Poll Brev Median C8-T1 Nml Nml Nml Nml Nml Right ABD Dig Min Ulnar C8-T1 Nml Nml Nml Nml Nml Left ABD Dig Min Ulnar C8-T1 Nml Nml Nml Nml Nml MTDD
== END 2020-05-24 10:02 | disposition home or self-care (01) ==
PROVIDERS: PCP Physician Assistant; Visit Provider Physician Assistant
DX: G56.01 Carpal tunnel syndrome, right upper limb (principal); G56.23 Lesion of ulnar nerve, bilateral upper limbs
CPT/HCPCS: 95886; 95911

== ENCOUNTER 2021-12-13 20:05 | Emergency (ER) | payer OTHER, SELFPAY ==
--- NOTE | ~2021-12-13 | CT_ITS ---
EXAMINATION: CT soft tissue neck w con DATE: 12/13/2021 23:46 INDICATION: Right neck and jaw pain and swelling. TECHNIQUE: Computed tomography (CT) of the neck was performed with 75 mL Omnipaque-350 intravenous co ntrast. Automated exposure control and iterative reconstruction technique were employed. The dose-mihir gth product was 658.59 mGy-cm. COMPARISON: None FINDINGS: The right submandibular gland appears mildly enlarged and hyperemic relative to the left submandibula r gland. There is also subtle haziness to the surrounding fat consistent with inflammation. Sialolith iasis with at least 4 calcified stones in the right submandibular gland duct. Constellation of findin gs would be consistent with obstructive sialoadenitis of the right submandibular gland. Thyroid gland and bilateral parotid glands are normal. Likely reactive right submandibular lymphadenopathy with mi ld asymmetric enlargement of a few right-sided submandibular and high jugular chain lymph nodes which nonetheless remain within normal limits. No abscess or other abnormal fluid collections. Visualized portions of the brain are normal. Orbits are normal. Mild mucosal thickening the bilateral maxillary sinuses. Moderate cervical spondylosis. Three lead pacemaker/AICD seen with leads on the humane officer topogr am projecting over the expected locations of the right atrial appendage, apex of the right ventricle and overlying the left ventricle likely having traversed the coronary sinus. There is also a left pec marion implantable cardiac cath lab technologist. A couple ill-defined groundglass opacities in the inferior right u pper lobe, the larger measuring 1.5 cm. IMPRESSION: 1. Likely obstructive right submandibular sialadenitis with 4 sialoliths within the right submandibul ar duct. 2. A couple small groundglass opacities in the right upper lobe which are most likely infectious/infl ammatory in etiology but would recommend 3 month follow-up noncontrast chest CT. Reviewed, dictated and finalized at location A. IMPRESSION: 1. Likely obstructive right submandibular sialadenitis with 4 sialoliths within the right submandibular duct. 2. A couple small groundglass opacities in the right upper lobe which are most likely infectious/inflammatory in etiology but would recommend 3 month follow-u p noncontrast chest CT.
[2021-12-13 20:09] VITALS: BP 130/65; PULSE 74; RESP 18; TEMP 36.6; O2SAT 97
--- NOTE | 2021-12-13 22:20 | ED.GENADULT ---
HPI - General Adult General Chief complaint: Unspecified Stated complaint: facial swelling Time Seen by Provider: 12/13/21 21:38 History of Present Illness HPI narrative: 56-year-old F presents here with pain and swelling in her left upper neck/jaw/under tongue, no fevers or chills, never had symptoms like this before, no change in voice or difficulty breathing or swallowing at this time no tooth aches. Location: face and neck Severity: moderate Quality: aching Pain Consistency: constant Associated symptoms: denies other symptoms Treatments prior to arrival: none Related Data Home Medications Medication Instructions Recorded Confirmed albuterol sulfate 2 puff INHALATION QID PRN 06/24/19 06/24/19 amiodarone 200 mg PO DAILY 06/24/19 06/24/19 aspirin 325 mg PO DAILY 06/24/19 06/24/19 docusate sodium [Stool Softener] 100 mg PO DAILY 06/24/19 06/24/19 furosemide [Lasix] 40 mg PO DAILY 06/24/19 06/24/19 lisinopril 40 mg PO DAILY 06/24/19 06/24/19 montelukast 10 mg PO DAILY 06/24/19 06/24/19 ranolazine [Ranexa] 1,000 mg PO Q12H 06/24/19 06/24/19 Allergies Allergy/AdvReac Type Severity Reaction Status Date / Time oxycodone [From Percocet] Allergy Unknown Unknown Verified 12/13/21 20:12 Review of Systems Review of Systems: All systems reviewed & are unremarkable except as noted in HPI and below PMFSH Past Medical History Medical History Afib Arthritis Asthma Bilateral cataracts CHF (congestive heart failure) COPD (chronic obstructive pulmonary disease) Emphysema of lung GERD (gastroesophageal reflux disease) HTN (hypertension) Myocardial infarction STEPH on CPAP Sleep apnea Surgical History Surgical History H/O heart artery stent H/O: hysterectomy History of back surgery History of loop recorder Hx of cholecystectomy Hx of tonsillectomy Family History Family History Mother Lung cancer Sibling Lung cancer Social History Social History Social History: She does not have a power of personal injury attorney. She does needs herself to be a full code. Smoking packs per day: 1 Smoking cigarettes per day: 20.0 Years smoked: 43 Smoking pack-years: 43.00 Smoking status: Current every day smoker Tobacco type: cigarettes Alcohol intake: never Substance use: current Substance use type: marijuana Other substance usage details: Occasion Additional living arrangements comments: Lives with son and a friend Additional occupation/education comments: Disabled Gender identity (if verbalized by the patient): Female Spiritual care concerns: No Agree to blood products: Yes Exam Narrative: EXAMINATION OF ORGAN SYSTEMS/BODY AREAS: Constitutional: Vital signs per nursing GENERAL:[No acute distress, non-toxic appearing.] HEAD: Normal with no signs of head trauma. EYES: EOMI, conjunctiva normal ENT: Some swelling in the right lower jaw/upper neck, tenderness to palpation beneath the tongue, no trismus, no voice changes, normal dentition LUNGS: Nonlabored breathing. HEART: [Regular rate and rhythm] ABD: [Soft], [tender to palpation] EXT: Normal range of motion SKIN: [No rashes or lesions.] NEURO: [Alert and oriented x 3. No gross focal sensory or strength deficits.] PSYCH: Normal affect Course Course Emergency Course: 56-year-old female presents here with swelling and pain in her left lower jaw/neck, vital signs stable here, exam shows tenderness palpation beneath the tongue, some swelling in the left neck, ddx includes sialoadenitis vs very unlikely Ken's given slow progession and nontoxic patient. Labs normal and imaging CT neck consistent with sialoadenitis. Patient is counseled on the diagnosis as well as need for follow-up with ENT, counseled on eating sour candies and gently massaging the are
[2021-12-13 22:22] LABS: Basophils Absolute Auto 0.1 K/mm3 (0.0-0.1); Basophils Percent Auto 0.5 % (0.2-1.2); Eosinophils Absolute Auto 0.2 K/mm3 (0-0.3); Eosinophils Percent Auto 2.4 % (0-4.4); Hemoglobin 13.2 g/dL (12.0-15.0); Immature Granulocyte Absolute 0.03 K/mm3 (0.00-0.031); Immature Granulocyte Percent A 0.3 % (0-0.5); Lymphocytes Percent Auto 15.1 % (18.3-44.2); Mean Corpuscular HGB Conc 31.4 g/dl (32-36); Mean Corpuscular Hemoglobin 28.4 pg (26-34); Mean Corpuscular Volume 90.3 fl (80-100); Mean Platelet Volume 11.6 fl (7.4-10.4); Monocytes Absolute Auto 0.9 K/mm3 (0.1-0.6); Monocytes Percent Auto 8.9 % (2.6-8.5); Neutrophils Absolute Auto 7.2 K/mm3 (1.3-6.7); Neutrophils Percent Auto 72.8 % (45.5-73.1); Platelet Count Result 166 k/mm3 (150-375); Red Blood Count 4.65 M/mm3 (4.2-5.4); Red Cell Distribution Width 17.2 % (11.5-14.5); White Blood Count 9.9 K/mm3 (4.5-10.0)
[2021-12-13] MEDS: DEXAMETHASONE 2 MG TABLET 10 MG PO (22:44)
[2021-12-13 23:08] LABS: Alanine Aminotransferase 36 U/L (6-35); Albumin Level 3.7 g/dL (3.5-5.1); Alkaline Phosphatase 92 U/L (38-126); Anion Gap 4 mmol/L (8-16); Aspartate Amino Transferase 32 U/L (14-36); Bilirubin,Total 0.6 mg/dL (0.2-1.3); Blood Urea Nitrogen 18 mg/dL (7-17); Calcium 8.8 mg/dL (8.4-10.2); Carbon Dioxide 29 mmol/L (22-30); Chloride 103 mmol/L (98-107); Estimated CRCL calculation 71 ml/min; Estimated Glomerular Filt Rate 51; Glucose 111 mg/dL (65-110); Sodium 136 mmol/L (137-145)
[2021-12-14] MEDS: AMOXICILLIN/CLAVULANATE K 875-125 MG TAB 1 TABLET PO (01:34)
== END 2021-12-14 01:45 | disposition home or self-care (01) ==
PROVIDERS: Emergency Provider Emergency Medicine; PCP Physician Assistant
DX: K11.21 Acute sialoadenitis (principal); I48.91 Unspecified atrial fibrillation; I11.0 Hypertensive heart disease with heart failure; I50.9 Heart failure, unspecified; J43.9 Emphysema, unspecified; I25.2 Old myocardial infarction; F17.210 Nicotine dependence, cigarettes, uncomplicated
CPT/HCPCS: 36415; 70491; 80053; 85025; 87040; 87077; 87186; 99284; A9270; J8540; Q9967

== ENCOUNTER 2022-10-01 08:56 | Outpatient (CLI) | payer OTHER, SELFPAY ==
--- NOTE | ~2022-10-01 | PE_ITS ---
EXAMINATION: PET skull to mid thigh DATE: 10/01/2022 11:04 INDICATION: Solitary nodule of lung. TECHNIQUE: Blood glucose level was 129 mg/dL. 11.609 mCi of 18-fluorodeoxyglucose (18-FDG) was admini stered i.v. Low dose computed tomography (CT) images were acquired from the base of the brain to the proximal thighs for attenuation correction and anatomic localization. Automated exposure control was employed. Dose-length product (DLP) was 1278 mGy-cm. Positron emission tomography (PET) images were a cquired in the same distribution. COMPARISON: PET/CT 02/01/2020, neck CT 12/13/21 FINDINGS: Head/neck: There are no pathologically enlarged lymph nodes. Again seen are sialoliths in the right f ambreen of mouth. Chest: There is mild emphysema. Again seen are groundglass opacities in the upper lobes. In the poste rior segment right upper lobe, there is a 1.8 cm part-solid nodule with 6 mm solid component without increased activity, stable from 12/13/21 and with improved volume of solid component from 02/01/20. No pleural effusion. Cardiomegaly is noted. There are coronary artery calcifications. No pericardial eff usion. There is a left chest pacer with leads in right atrium, right ventricle, and coronary sinus. T here is a subcutaneously electronic implant in left anterior chest wall. There is a small sliding hia mckinley hernia. Abdomen/pelvis/proximal thighs: The liver is normal. There are changes of cholecystectomy. The spleen and pancreas are normal. Again seen are low-attenuation masses in the adrenal glands measuring up to 2.0 cm on the left, consistent with adenomas. There are cysts in the kidneys measuring up to 9.4 cm on the right. There is a 3.7 cm fusiform aneurysm of infrarenal aorta. There is diverticulosis of the colon without evidence of diverticulitis. No dilated loops of bowel. There are no pathologically enl arged lymph nodes. There is no free intraperitoneal fluid. There is no osseous malignancy. IMPRESSION: 1. 1.8 cm part-solid nodule with 6 mm solid component without increased activity in right lung upper lobe, stable from 12/13/21 and with improved volume of solid component from 02/01/20, likely benign. 2. 3.7 cm fusiform aneurysm of infrarenal aorta. Reviewed, dictated and finalized at location A. T COORDINATOR IMPRESSION: 1. 1.8 cm part-solid nodule with 6 mm solid component without increased activit y in right lung upper lobe, stable from 12/13/21 and with improved volume of carmelo id component from 02/01/20, likely benign. 2. 3.7 cm fusiform aneurysm of infrarenal aorta.
[2022-10-01 09:21] LABS: Glucose Point of Care 129 mg/dl (65-105)
== END 2022-10-01 08:57 | disposition home or self-care (01) ==
PROVIDERS: PCP Physician Assistant; Visit Provider Nurse Practitioner
DX: R91.1 Solitary pulmonary nodule (principal); I71.43 Infrarenal abdominal aortic aneurysm, without rupture
CPT/HCPCS: 78815; A9552